=== PATIENT | female | born 1990 | race Caucasian/White ===

== ENCOUNTER 2020-10-07 16:56 | Outpatient (CLI) | payer BC ==
[~2020-10-07] VITALS: Ht 165.1 cm; Wt 75.0 kg
[2020-10-07 17:43] VITALS: BP 120/78
[2020-10-07 18:12] LABS: AMPHETAMINE SCREEN, URINE Negative (Negative); BARBITURATE SCREEN, URINE Negative (Negative); BENZODIAZEPINE SCREEN, URINE Negative (Negative); CANNABINOID SCREEN, URINE Negative (Negative); COCAINE SCREEN, URINE Negative (Negative); METHADONE SCREEN, URINE Negative (Negative); OPIATE SCREEN, URINE Negative (Negative)
[2020-10-07 18:14] LABS: MICROSCOPIC INDICATED
[2020-10-07] MEDS ORDERED: PREN1TAB60 PO (18:41)
== END 2020-10-07 19:01 | disposition home or self-care (01) ==
LOC: LDOP 16:56
PROVIDERS: ATTEND Obstetrics & Gynecology
DX: O26.893 Other specified pregnancy related conditions, third trimester (principal); R10.9 Unspecified abdominal pain; Z3A.39 39 weeks gestation of pregnancy
CPT/HCPCS: 59025; 80307; 81001; 87086

== ENCOUNTER 2020-10-07 20:48 | Inpatient (IN) | payer BC ==
[~2020-10-07] VITALS: Ht 165.1 cm; Wt 75.0 kg
[~2020-10-07 20:48] MED LIST: PREN1TAB60 PO
[2020-10-07] MEDS ORDERED: NEWBORN KIT ONE (20:58)
[2020-10-07] MEDS ORDERED: LIDOCAINE 1%, 20ML ONE (20:58)
[2020-10-07] MEDS ORDERED: MISOPROSTOL 200 MCG TABLET ONE (20:58)
[2020-10-07] MEDS ORDERED: OXYTOCIN 30U/ 0.9% NaCL 500ML 500 ML ONE (20:58)
[2020-10-07] MEDS ORDERED: D5%-LACTATED RINGERS 1,000 ML IV SCH (21:00)
[2020-10-07] MEDS ORDERED: LACTATED RINGERS 1,000 ML IV SCH ×2 (21:00→23:00)
[2020-10-07] MEDS ORDERED: ONDANSETRON 2MG/ML, 2ML IVPush PRN ×2 (21:00→23:00)
[2020-10-07] MEDS ORDERED: OXYTOCIN 30U/ 0.9% NaCL 500ML 500 ML IV ONE (21:00)
[2020-10-07] MEDS ORDERED: FENTANYL PF 100 MCG/2ML IVPush PRN (21:00)
[2020-10-07] MEDS ORDERED: FENTANYL PF 100 MCG/2ML ONE (21:00)
[2020-10-07] MEDS ORDERED: TERBUTALINE 1 MG/ML, 1ML SQ PRN (21:00)
[2020-10-07] MEDS ORDERED: METOCLOPRAMIDE 5 MG/ML, 2ML IVPush PRN (21:00)
[2020-10-07] MEDS ORDERED: SODIUM CITRATE/CITRIC ACID 30 ML UDC PO PRN (21:00)
[2020-10-07] MEDS ORDERED: FENTANYL PF 100 MCG/2ML IV PRN (21:00)
[2020-10-07] MEDS ORDERED: OXYTOCIN 30U/ 0.9% NaCL 500ML 500 ML IV PRN (21:00)
[2020-10-07] MEDS ORDERED: TERBUTALINE 1 MG/ML, 1ML IVPush PRN (21:00)
[2020-10-07] MEDS ORDERED: CALCIUM CARBONATE 500 MG TAB.CHEW PO PRN (21:00)
[2020-10-07 21:22] LABS: BASOPHILS % (AUTO) 0 % (0-1); EOSINOPHILS % (AUTO) 0 % (1-7); LYMPHOCYTES % (AUTO) 22 % (22-44); MEAN CORPUSCULAR HEMOGLOBIN 28.6 pg (27.0-34.8); MEAN CORPUSCULAR HGB CONC 34.9 g/dL (32.4-35.8); MEAN PLATELET VOLUME 8.4 fL (7.4-10.4); MONOCYTES % (AUTO) 8 % (2-9); NEUTROPHILS % (AUTO) 69 % (42-75); PLATELET COUNT 293 x10^3/uL (130-400); RED BLOOD COUNT 4.22 x10^6/uL (3.82-5.3); RED CELL DISTRIBUTION WIDTH 13.6 % (9.6-15.2)
[2020-10-07] MEDS ORDERED: FENTANYL/BUPIV./NS/PF 250 ML EPIDCONT ONE (21:40)
[2020-10-07] MEDS ORDERED: BUPIVACAINE 0.25% ONE (21:40)
[2020-10-07] MEDS ORDERED: NALOXONE 0.4 MG/ML, 1ML IVPush PRN (23:00)
[2020-10-07] MEDS ORDERED: EPHEDRINE 50 MG/ML, 1ML IVPush PRN (23:00)
[2020-10-07] MEDS ORDERED: FENTANYL/BUPIV./NS/PF 250 ML EPIDCONT SCH (23:00)
[2020-10-07] MEDS ORDERED: DIPHENHYDRAMINE 50 MG/ML, 1ML IVPush PRN (23:00)
[2020-10-07] MEDS ORDERED: LACTATED RINGERS 1,000 ML IVBOLUS PRN (23:00)
[2020-10-08] MEDS ORDERED: ONDANSETRON 2MG/ML, 2ML IV PRN (01:30)
[2020-10-08] MEDS ORDERED: DIPH,PERTUSS(ACELL),TET VAC/PF NC IM-VACC PRN (01:30)
[2020-10-08] MEDS ORDERED: OXYcodone/APAP 5/325MG TABLET PO PRN (01:30)
[2020-10-08] MEDS ORDERED: MISOPROSTOL 200 MCG TABLET PR PRN (01:30)
[2020-10-08] MEDS ORDERED: ACETAMINOPHEN 325 MG TABLET PO PRN ×2 (01:30)
[2020-10-08] MEDS ORDERED: RHOGAM FROM BLOOD BANK 1 NOTE EA IM/IV ONE (01:30)
[2020-10-08] MEDS ORDERED: SIMETHICONE 80 MG CHEW TAB PO PRN (01:30)
[2020-10-08] MEDS ORDERED: MAGNESIUM HYDROXIDE 8%, 30ML UDC PO PRN (01:30)
[2020-10-08] MEDS: OXYTOCIN 30U/ 0.9% NaCL 500ML 500 ML IV SCH ×3 (02:17→21:30)
[2020-10-08] MEDS: IBUPROFEN 600 MG TABLET PO PRN ×4 (03:33→20:34)
[2020-10-08 03:45] VITALS: BP 108/72
[2020-10-08 08:30] VITALS: BP 104/71
[2020-10-08] MEDS: DOCUSATE 100 MG CAPSULE PO PRN ×2 (08:31→20:34)
[2020-10-08] MEDS: PRENATAL VIT/IRON/FA 1 EACH TABLET PO SCH (08:31)
[2020-10-08 08:53] LABS: BASOPHILS % (AUTO) 0 % (0-1); EOSINOPHILS % (AUTO) 0 % (1-7); LYMPHOCYTES % (AUTO) 18 % (22-44); MEAN CORPUSCULAR HEMOGLOBIN 28.8 pg (27.0-34.8); MEAN CORPUSCULAR HGB CONC 35.1 g/dL (32.4-35.8); MEAN PLATELET VOLUME 8.3 fL (7.4-10.4); MONOCYTES % (AUTO) 7 % (2-9); NEUTROPHILS % (AUTO) 74 % (42-75); PLATELET COUNT 241 x10^3/uL (130-400); RED BLOOD COUNT 2.79 x10^6/uL (3.82-5.3)
[2020-10-08 12:20] VITALS: BP 112/78
[2020-10-08 16:10] VITALS: BP 101/66
[2020-10-08 20:15] VITALS: BP 108/73
[2020-10-08] MEDS: OXYcodone/APAP 5/325MG TABLET PO PRN (20:34)
[2020-10-09 02:00] VITALS: BP 100/62
[2020-10-09] MEDS: OXYcodone/APAP 5/325MG TABLET PO PRN ×2 (02:28→08:48)
[2020-10-09] MEDS: OXYTOCIN 30U/ 0.9% NaCL 500ML 500 ML IV SCH (07:30)
[2020-10-09 08:00] VITALS: BP 104/71
[2020-10-09] MEDS: PRENATAL VIT/IRON/FA 1 EACH TABLET PO SCH (08:48)
[2020-10-09] MEDS: IBUPROFEN 600 MG TABLET PO PRN (08:48)
[2020-10-09] MEDS: DOCUSATE 100 MG CAPSULE PO PRN (08:48)
[2020-10-09] MEDS ORDERED: IBUP-1222 PO (13:40)
== END 2020-10-09 17:30 | disposition home or self-care (01) | DRG 807 ==
LOC: LDOP 20:48 → LDIP 20:56 → 2NW 10-08 03:12
PROVIDERS: ADMIT Obstetrics & Gynecology; ATTEND Obstetrics & Gynecology
PROC: 10E0XZZ Delivery of Products of Conception, External Approach (ICD-10-PCS; principal; 2020-10-08)
PROC: 0KQM0ZZ Repair Perineum Muscle, Open Approach (ICD-10-PCS; 2020-10-08)
PROC: 3E0R3BZ Introduction of Anesthetic Agent into Spinal Canal, Percutaneous Approach (ICD-10-PCS; 2020-10-08)
PROC: 00HU33Z Insertion of Infusion Device into Spinal Canal, Percutaneous Approach (ICD-10-PCS; 2020-10-08)
DX: O70.1 Second degree perineal laceration during delivery (principal); Z37.0 Single live birth; Z3A.39 39 weeks gestation of pregnancy; Z20.822 Contact with and (suspected) exposure to COVID-19; Z88.2 Allergy status to sulfonamides
CPT/HCPCS: 36415; 85025; 86592; 86850; 86900; 87635; G0378; J2405; J3010; J2590